=== PATIENT | female | born 1980 | race African-American/Black ===

== ENCOUNTER 2016-12-29 18:27 | Emergency (ER) | payer SELFPAY ==
[~2016-12-29] VITALS: Ht 162.6 cm; Wt 70.9 kg
[2016-12-29 21:03] LABS: BASOPHIL % 0.8 % (0-2); PLATELET COUNT 259 x10^3mcL (130-400)
[2016-12-29 21:17] LABS: CALCIUM 8.5 mg/dL (8.5-10.1); CARBON DIOXIDE 25.9 mmol/L (21-32); CREATININE SERUM 1.2 mg/dL (0.6-1.0); POTASSIUM SERUM 3.5 mmol/L (3.5-5.1)
[2016-12-29 21:21] LABS: ALBUMIN 3.5 g/dL (3.4-5.0); BILIRUBIN TOTAL 0.4 mg/dL (0.20-1.00)
[2016-12-29 23:16] VITALS: BP 168/78
== END 2016-12-29 23:16 | disposition home or self-care (01) ==
LOC: ED 18:27
PROVIDERS: Emergency Medicine
DX: R10.13 Epigastric pain (principal); R11.0 Nausea; R31.9 Hematuria, unspecified; I10 Essential (primary) hypertension; Z98.51 Tubal ligation status; Z79.899 Other long term (current) drug therapy
CPT/HCPCS: 36415; J1885; Q0092

== ENCOUNTER 2017-08-26 21:11 | Emergency (ER) | payer SELFPAY ==
[~2017-08-26] VITALS: Ht 162.6 cm; Wt 77.1 kg
[2017-08-26 21:14] VITALS: Ht 162.6 cm; Wt 77.1 kg
[2017-08-27 00:50] LABS: BASOPHIL % 0.7 % (0-2); PLATELET COUNT 262 x10^3mcL (130-400); RED CELL DISTRIBUTION WIDTH 14.3 % (11.5-14.5)
[2017-08-27 01:06] LABS: CALCIUM 8.6 mg/dL (8.5-10.1); CARBON DIOXIDE 30.9 mmol/L (21-32); CREATININE SERUM 1.3 mg/dL (0.6-1.0); POTASSIUM SERUM 3.4 mmol/L (3.5-5.1)
[2017-08-27 01:11] LABS: BILIRUBIN TOTAL 0.5 mg/dL (0.20-1.00)
[2017-08-27 02:40] VITALS: BP 175/110
== END 2017-08-27 02:40 | disposition home or self-care (01) ==
LOC: ED 21:11
PROVIDERS: Emergency Medicine
DX: R07.89 Other chest pain (principal); I10 Essential (primary) hypertension; N28.9 Disorder of kidney and ureter, unspecified; J30.9 Allergic rhinitis, unspecified
CPT/HCPCS: 36415; J7620